=== PATIENT | female | born 1990 | race Caucasian/White ===

== ENCOUNTER 2019-07-12 12:11 | Outpatient (RCR) | payer BC, SELFPAY ==
[2019-07-12 14:20] LABS: Hematocrit 33.8 % (37.0-47.0); Hemoglobin 11.1 g/dL (12.0-15.0)
[2019-07-12 14:30] LABS: Glucose 1 Hour PP 50gm Dose 101 mg/dL
[2019-07-12 14:49] LABS: Vitamin D 25 Hydroxy 43.5 ng/mL
[2019-07-12 15:12] LABS: HIV 1/2 Ab P24 Ag Result Negative (Negative)
[2019-07-12] MEDS: RHO(D) IMMUNE GLOBULIN 300 MCG SYRINGE IM (17:43)
== END 2019-10-10 23:59 | disposition home or self-care (01) ==
LOC: ANHLAB 12:11
PROVIDERS: PCP Registered Nurse; Visit Provider Nurse Practitioner
DX: Z36.89 Encounter for other specified antenatal screening (principal); Z29.13 Encounter for prophylactic Rho(D) immune globulin; O36.0920 Maternal care for other rhesus isoimmunization, second trimester, not applicable or unspecified; Z3A.00 Weeks of gestation of pregnancy not specified
CPT/HCPCS: 36415; 82306; 82947; 85014; 85018; 86703; 86900; 86901; 90384; 96372; G0432; J2790

== ENCOUNTER 2019-09-30 00:33 | Inpatient (IN) | payer BC, SELFPAY ==
[2019-09-30] VITALS (79 sets, daily range): BP systolic 104–212; BP diastolic 59–163; PULSE 69–129; RESP 16–18; TEMP 36.2–37.4; O2SAT 99–100; BMI 27.6
[2019-09-30 02:03] LABS: Basophils Absolute Auto 0.1 K/mm3 (0.0-0.1); Basophils Percent Auto 0.4 % (0.2-1.2); Eosinophils Absolute Auto 0.1 K/mm3 (0-0.3); Eosinophils Percent Auto 0.7 % (0-4.4); Hematocrit 34.7 % (37.0-47.0); Hemoglobin 11.2 g/dL (12.0-15.0); Immature Granulocyte Absolute 0.06 K/mm3 (0.00-0.031); Immature Granulocyte Percent A 0.5 % (0-0.5); Lymphocytes Absolute Auto 3.68 K/mm3 (0.9-3.2); Lymphocytes Percent Auto 28.7 % (18.3-44.2); Mean Corpuscular HGB Conc 32.3 g/dl (32-36); Mean Corpuscular Hemoglobin 26.9 pg (26-34); Mean Corpuscular Volume 83.2 fl (80-100); Mean Platelet Volume 10.2 fl (7.4-10.4); Monocytes Absolute Auto 0.9 K/mm3 (0.1-0.6); Monocytes Percent Auto 6.7 % (2.6-8.5); Neutrophils Absolute Auto 8.1 K/mm3 (1.3-6.7); Platelet Count Result 403 k/mm3 (150-375); Red Blood Count 4.17 M/mm3 (4.2-5.4); Red Cell Distribution Width 14.4 % (11.5-14.5); White Blood Count 12.8 K/mm3 (4.5-10.0)
[2019-09-30 02:19] LABS: Alanine Aminotransferase 11 U/L (4-35); Albumin Level 3.6 g/dL (3.5-5.1); Alkaline Phosphatase 136 U/L (38-126); Aspartate Amino Transferase 24 U/L (14-36); Bilirubin,Total 0.2 mg/dL (0.2-1.3); Blood Urea Nitrogen 13 mg/dL (7-17); Calcium 8.8 mg/dL (8.4-10.2); Carbon Dioxide 23 mmol/L (22-30); Chloride 107 mmol/L (98-107); Estimated CRCL calculation 114 ml/min; Estimated Glomerular Filt Rate > 60; Glucose 85 mg/dL (65-105); Potassium 4.1 mmol/L (3.4-5.0); Sodium 135 mmol/L (137-145); Uric Acid 4.1 mg/dL (2.5-7.5)
[2019-09-30] MEDS: LACTATED RINGERS 1,000 ML 125 ML IV CONT (03:05)
--- NOTE | 2019-09-30 03:19 | WPDANESEPP ---
Anes - Eval Pre Procedure Procedure: labor epidural Date/Time: 09/30/19 03:19 Surgeon: zofia Pre Op Diagnosis: Ctx Patient Data Age: 28 Gender: F Height: 1.7 m Weight: 80 kg Last Vital Signs Temp 36.6 C 09/30/19 01:47 Pulse 77 09/30/19 03:16 BP 127/89 09/30/19 03:16 Allergies Allergy/AdvReac Type Severity Reaction Status Date / Time amoxicillin [From Augmentin] Allergy Unknown Verified 09/04/19 14:44 clavulanic acid Allergy Unknown Verified 09/04/19 14:44 [From Augmentin] clindamycin Allergy Unknown Verified 09/04/19 14:44 levofloxacin [From Levaquin] Allergy Unknown Verified 09/04/19 14:44 sulfamethoxazole Allergy Unknown Verified 09/04/19 14:44 [From Bactrim] trimethoprim [From Bactrim] Allergy Unknown Verified 09/04/19 14:44 Home Medications Medication Instructions Recorded Confirmed Type aspirin [Aspirin Childrens] 81 mg PO DAILY 05/04/19 09/30/19 History ergocalciferol (vitamin D2) 50,000 unit PO WEEKLY 05/04/19 09/30/19 History [id number] 1 tablet PO DAILY 09/04/19 09/30/19 History [ Gummy] Laboratory Tests 09/30/19 09/30/19 09/30/19 01:53 01:53 01:53 WBC 12.8 K/mm3 H K/mm3 (4.5-10.0) RBC 4.17 M/mm3 L M/mm3 (4.2-5.4) Hgb 11.2 g/dL L g/dL (12.0-15.0) Hct 34.7 % L % (37.0-47.0) MCV 83.2 fl fl (80-100) MCH 26.9 pg pg (26-34) MCHC 32.3 g/dl g/dl (32-36) RDW 14.4 % % (11.5-14.5) Plt Count 403 k/mm3 H k/mm3 (150-375) MPV 10.2 fl fl (7.4-10.4) Immature Gran % (Auto) 0.5 % % (0-0.5) Neut % (Auto) 63.0 % % (45.5-73.1) Lymph % (Auto) 28.7 % % (18.3-44.2) [place] % (Auto) 6.7 % % (2.6-8.5) Eos % (Auto) 0.7 % % (0-4.4) Baso % (Auto) 0.4 % % (0.2-1.2) Lymph # (Auto) 3.68 K/mm3 H K/mm3 (0.9-3.2) [place] # (Auto) 0.9 K/mm3 H K/mm3 (0.1-0.6) Eos # (Auto) 0.1 K/mm3 K/mm3 (0-0.3) Baso # (Auto) 0.1 K/mm3 K/mm3 (0.0-0.1) Abs Immat Gran (auto) 0.06 K/mm3 H K/mm3 (0.00-0.031) Absolute Neuts (auto) 8.1 K/mm3 H K/mm3 (1.3-6.7) Absolute Nucleated RBC 0.0 K/mm3 K/mm3 (0.0-0.012) Nucleated RBC % 0.0 % % (0.0-0.2) Sodium Potassium Chloride Carbon Dioxide BUN Creatinine Estim Creat Clear Calc Estimated GFR Glucose Uric Acid Cancelled Calcium Total Bilirubin AST ALT Alkaline Phosphatase Total Protein Albumin RPR Pending 09/30/19 01:53 WBC RBC Hgb Hct MCV MCH MCHC RDW Plt Count MPV Immature Gran % (Auto) Neut % (Auto) Lymph % (Auto) [place] % (Auto) Eos % (Auto) Baso % (Auto) Lymph # (Auto) [place] # (Auto) Eos # (Auto) Baso # (Auto) Abs Immat Gran (auto) Absolute Neuts (auto) Absolute Nucleated RBC Nucleated RBC % Sodium 135 mmol/L L mmol/L (137-145) Potassium 4.1 mmol/L mmol/L (3.4-5.0) Chloride 107 mmol/L mmol/L (98-107) Carbon Dioxide 23 mmol/L mmol/L (22-30) BUN 13 mg/dL mg/dL (7-17) Creatinine 0.60 mg/dL L mg/dL (0.7-1.0) Estim Creat Clear Calc 114 ml/min ml/min Estimated GFR > 60 (59 - ) Glucose 85 mg/dL mg/dL (65-105) Uric Acid 4.1 mg/dL mg/dL (2.5-7.5) Calcium 8.8 mg/dL mg/dL (8.4-10.2) Total Bilirubin 0.2 mg/dL mg/dL (0.2-1.3) AST 24 U/L U/L (14-36) ALT 11 U/L U/L (4-35) Alkaline Phosphatase 136 U/L H U/L (38-126) Total Protein 7.0 g/dL g/dL (6.3-8.2) Albumin 3.6 g/dL g/dL (3.5-5.1) RPR Patient h
[2019-09-30] MEDS: OXYTOCIN 30 UNITS/NS 500 ML 30 UNITS/500 ML BAG 125 UNITS IV CONT (09:10)
--- NOTE | 2019-09-30 09:22 | WPDOBADMIT ---
Obstetrics - Admit Note Admission Note: Complete and pushing record reviewed. No pertinent additions to the history and/or any subsequent changes in the physical findings that are not consistent with the expected course of the were found. Additions to the history and/or subsequent changes in the physical findings follow. None.
--- NOTE | 2019-09-30 09:23 | PM.OBPRVD ---
OB - Delivery Note Procedure Delivery date: 09/30/19 Procedure: Intrapartal events: None Induction method: none Delivery monitor: external FHT and external uterine Route of delivery: Laceration description: Perineal - 2nd Degree Delivery repair: vicryl Specimen: No Estimated blood loss (mL): 200 Anesthesia type: Epidural Disposition: floor Baby Date of : 09/30/19 Time of : 09:04 Weeks of gestation at delivery: 39 Infant gender: Male Weight (pounds): 8 Weight (ounces): 1 presentation: vertex position: Left Occiput Anterior Placenta delivery description: Spontaneous cord vessel description: 3 Vessels, Nuchal Cord, Loose and Clamped/Cut score one minute: 9 score five minutes: 9
--- NOTE | 2019-09-30 09:25 | PM.DS ---
DS: Diagnosis Admitting Diagnosis Admitting Diagnosis: <Robi Esqueda MD - Last Filed: 09/30/19 09:26> DS: Summary Time Spent with Patient Time attestation: Total time spent providing and/or coordinating discharge services: <Robi Esqueda MD - Last Filed: 09/30/19 09:26> DS: Data Data Completed and Pending Labs on day of discharge: Labs from last 24 hours 09/30/19 09/30/19 09/30/19 01:53 01:53 01:53 WBC RBC Hgb Hct MCV MCH MCHC RDW Plt Count MPV Immature Gran % (Auto) Neut % (Auto) Lymph % (Auto) [place] % (Auto) Eos % (Auto) Baso % (Auto) Lymph # (Auto) [place] # (Auto) Eos # (Auto) Baso # (Auto) Abs Immat Gran (auto) Absolute Neuts (auto) Absolute Nucleated RBC Nucleated RBC % Sodium 135 L Potassium 4.1 Chloride 107 Carbon Dioxide 23 BUN 13 Creatinine 0.60 L Estim Creat Clear Calc 114 Estimated GFR > 60 Glucose 85 Uric Acid 4.1 Calcium 8.8 Total Bilirubin 0.2 AST 24 ALT 11 Alkaline Phosphatase 136 H Total Protein 7.0 Albumin 3.6 RPR Pending Blood Type O Negative Antibody Screen Positive Antibody Identification Inconclusive Antigen Identification Cancelled THIAGO, IgG Interpret Not Performed THIAGO, Poly Interpret Negative THIAGO, Complement Interp Not Performed 09/30/19 09/30/19 01:53 01:53 WBC 12.8 H RBC 4.17 L Hgb 11.2 L Hct 34.7 L MCV 83.2 MCH 26.9 MCHC 32.3 RDW 14.4 Plt Count 403 H MPV 10.2 Immature Gran % (Auto) 0.5 Neut % (Auto) 63.0 Lymph % (Auto) 28.7 [place] % (Auto) 6.7 Eos % (Auto) 0.7 Baso % (Auto) 0.4 Lymph # (Auto) 3.[address] [place] # (Auto) 0.9 H Eos # (Auto) 0.1 Baso # (Auto) 0.1 Abs Immat Gran (auto) 0.06 H Absolute Neuts (auto) 8.1 H Absolute Nucleated RBC 0.0 Nucleated RBC % 0.0 Sodium Potassium Chloride Carbon Dioxide BUN Creatinine Estim Creat Clear Calc Estimated GFR Glucose Uric Acid Cancelled Calcium Total Bilirubin AST ALT Alkaline Phosphatase Total Protein Albumin RPR Blood Type Antibody Screen Antibody Identification Antigen Identification THIAGO, IgG Interpret THIAGO, Poly Interpret THIAGO, Complement Interp <Robi Esqueda MD - Last Filed: 09/30/19 09:26> Discharge Plan Discharge Attending physician on discharge: Brynn Galaviz <Robi Esqueda MD - Last Filed: 09/30/19 09:26> Brynn Galaviz <Brynn Galaviz MD - Last Filed: 10/02/19 09:00> Discharging Clinician: Robi Esqueda <Robi Esqueda MD - Last Filed: 09/30/19 09:26> Robi Esqueda <Brynn Galaviz MD - Last Filed: 10/02/19 09:00> Patient Disposition: Home, Self-Care <Robi Esqueda MD - Last Filed: 09/30/19 09:26> Activity: may shower and pelvic rest <Robi Esqueda MD - Last Filed: 09/30/19 09:26> may shower and pelvic rest <Brynn Galaviz MD - Last Filed: 10/02/19 09:00> Diet: regular <Robi Esqueda MD - Last Filed: 09/30/19 09:26> regular <Brynn Galaviz MD - Last Filed: 10/02/19 09:00> Patient Instructions: Antibiotic Form <Robi Esqueda MD - Last Filed: 09/30/19 09:26> Stand Alone Forms: General Discharge Information <Robi Esqueda MD - Last Filed: 09/30/19 09:26> Follow-up/Referrals: Brynn Galaviz MD [Physician] - 6 Weeks <Robi Esqueda MD - Last Filed: 09/30/19 09:26> Discharge Medications: Continued ergocalciferol (vitamin D2) 1,250 mcg (50,000 unit) capsule 50,000 unit PO WEEKLY RF: 0 Gummy 400 mcg-35 mg -25 mg-5 mg Tablet,Chewable 1 tablet PO DAILY RF: 0 Discontinued aspirin [Aspirin Childrens] 81 mg Tablet,Chewable 81 mg PO DAILY RF: 0 <Robi Esqueda MD - Last Filed: 09/30/19 09:26> Date of
[2019-09-30] MEDS: IBUPROFEN 600 MG TABLET PO ×2 (13:20→23:33)
--- NOTE | 2019-09-30 13:25 | PC.NURSE ---
1217-Patient transferred to post room #286 via wheelchair. Support person present. Oriented to unit, room, information board, rooming in, admission packet and security measures. Patient verbalizes understanding.
--- NOTE | 2019-09-30 20:30 | PC.NURSE ---
Patient viewed the discharge video Mother & Baby Care, The First Two Weeks . Patient was given the opportunity and encouraged to ask questions. Patient verbalized understanding of information shared and has been given the mother/baby guide for home reference.
[2019-10-01 03:48] LABS: Hematocrit 29.9 % (37.0-47.0); Hemoglobin 9.7 g/dL (12.0-15.0)
[2019-10-01 07:15] VITALS: BP 119/88; PULSE 89; RESP 18; TEMP 35.3; O2SAT 99
[2019-10-01] MEDS: IBUPROFEN 600 MG TABLET PO ×3 (07:55→20:14)
[2019-10-01] MEDS: DOCUSATE SODIUM 100 MG CAPSULE PO (07:56)
--- NOTE | 2019-10-01 10:33 | PM.OBPNVD ---
OB - PN: Subj Subjective Date/time seen: 10/01/19 10:33 patient doing well bottom sore from hemorrhoids. OB - PN: Obj Data Labs CBC & Chem 7: 10/01/19 03:35 09/30/19 01:53 Labs: Laboratory Results - last 24 hr 10/01/19 03:35 Hgb 9.7 L Hct 29.9 L OB - PN A/P Assessment and Plan (1) (normal spontaneous vaginal delivery): Code(s): O80 - Encounter for full-term uncomplicated delivery Status: Acute Assessment and Plan: doing well no complaints. Time Spent With Patient Time: Total time spent is greater than 50% in coordination of care (as documented) at patient's floor/unit and/or counseling patient: Exam Narrative: Exam Narrative: ff below umbilicus
--- NOTE | 2019-10-01 15:28 | WPDANLDPN2 ---
Anes-Prog Note L&D Date/Time: 10/01/19 15:28 Comfortable throughout: labor and delivery Neuraxial method: epidural Epidural/Spinal procedure site: clean & non-tender Neuro status: Neuro function grossly intact. Cardiovascular status: normal Respiratory status: normal Airway patency: baseline Mental status: baseline Post-Op hydration status: normal Vital Signs: Last Vital Signs Temp 35.3 C L 10/01/19 07:15 Pulse 89 10/01/19 07:15 Resp 18 10/01/19 07:15 BP 119/88 10/01/19 07:15 Pulse Ox 99 10/01/19 07:15 Post-procedural complaints: none Patient feedback: Patient satisfied with anesthetic care.
[2019-10-01 20:14] VITALS: BP 134/84; PULSE 99; RESP 18; TEMP 36.5; O2SAT 100
[2019-10-02] MEDS: IBUPROFEN 600 MG TABLET PO ×2 (02:57→09:32)
[2019-10-02 08:30] VITALS: BP 127/90; PULSE 107; RESP 18; TEMP 36.8; O2SAT 99
--- NOTE | 2019-10-02 08:57 | PM.OBPNVD ---
OB - PN: Subj Subjective Date/time seen: 10/02/19 08:57 Patient comments: no complaints baby status: doing well OB - PN: Obj Data Labs CBC & Chem 7: 10/01/19 03:35 09/30/19 01:53 OB - PN A/P Plan day: 2 Plan: discharge home and other (plan mirerna for bc) Time Spent With Patient Time: Total time spent is greater than 50% in coordination of care (as documented) at patient's floor/unit and/or counseling patient: Exam : Bimanual exam- vagina & uterus: other (Uterus firm, nt @U)
[2019-10-02] MEDS: DOCUSATE SODIUM 100 MG CAPSULE PO (09:32)
[2019-10-02] MEDS: WITCH HAZEL 40 PADS 1 PAD TOPICAL (09:33)
--- NOTE | 2019-10-02 10:30 | PC.NURSE ---
Consulted with patient, mother reports she is pumping and bottle feeding due to nipple pain. Mother states will latch eagerly and is unable to latch without discomfort. Mother states she has pain to nipples with pumping. Discussed nipple care and flange sizing. Advised mother should not have any pain with pumping. Reviewed instructions on breast pump care and usage, pumping schedule, nipple care, and collection and storage of breast milk. Encouraged [id number], breast massage and manual expression to stimulate supply. Assessed patient for correct flange size 21mm, placement and draw. Patient verbalizes and demonstrates understanding of instructions. Mother states at this time she does not wish to breastfeed, she will only pump and bottle feed. However she would like to try latching one time with assist from . Reviewed feeding cues, frequencies, duration of feedings, feeding elimination flow sheet, and signs of adequate intake. Demonstrated stimulation techniques to wake infant for feeding. Assisted with infant to breast. Reviewed positioning/alignment in cross cradle, holding breast in U hold and guided asymmetrical latch on. at breast with one suck and mother quickly reported pain. Reviewed how to break latch. Mother states she will continue with pump and bottle feeding. Mother is feeding as required and waking to feed if needed. Infant is currently meeting outcomes for weight, output, jaundice and feeding frequencies. Mother states she feels confident to continue current feeding plan at home. Reviewed transition to breast milk, signs of adequate intake, and engorgement/relief. Instructed to call ICP if intake/output less than required. Reviewed regular medications mother is taking. Information provided per [facility]. Reviewed community resources on the [facility] website and in the Mom/Baby guide. Information on outpatient services provided. Mother has no further questions at this time.
[2019-10-02 10:53] LABS: Rapid Plasma Reagin Non-Reactive (NonReactive)
[2019-10-04 10:05] VITALS: BP 130/88; PULSE 96; RESP 16; TEMP 36.9; O2SAT 100
== END 2019-10-02 12:52 | disposition home or self-care (01) | DRG 807 ==
LOC: ANHLDR 09:26 → ANHOB2 12:26
PROVIDERS: Admitting Provider Obstetrics & Gynecology; PCP Registered Nurse; Visit Provider Obstetrics & Gynecology Gynecology
DX: O69.81X0 Labor and delivery complicated by cord around neck, without compression, not applicable or unspecified (principal); Z37.0 Single live birth; Z3A.39 39 weeks gestation of pregnancy; O70.1 Second degree perineal laceration during delivery
CPT/HCPCS: 36415; 80053; 84550; 85014; 85018; 85025; 86592; 86850; 86880; 86900; 86901; 86902; A9270; J2590; J2795; J7120

== ENCOUNTER → 2022-03-02 12:52 | Outpatient (CLI) | payer OTHER, SELFPAY ==
--- NOTE | ~2022-03-02 | US_ITS ---
EXAMINATION: US transvaginal DATE: 03/02/2022 14:26 INDICATION: Other specified abnormal uterine and vaginal bleeding TECHNIQUE: Multiple endovaginal sonographic images of the pelvis were obtained. COMPARISON: None. FINDINGS: The uterus measures 6.4 x 3.7 x 5.6 cm. The endometrial complex measures 6 mm in thickness. The righ t ovary measures 3.3 x 2.0 x 2.2 cm. The left ovary measures 5.9 x 5.4 x 5.4 cm. Comprised primarily of a 5.3 cm complex cystic lesion with hypoechoic reticulation and bandlike appearance typical of hem orrhagic cysts. There is normal vascular flow in the ovaries. There is no free fluid in the pelvis. IMPRESSION: 1. 5.3 cm complex left ovarian likely hemorrhagic cyst. Recommend 6-12 week follow-up ultrasound to d ocument resolution. Otherwise normal pelvic ultrasound. Reviewed, dictated and finalized at location B. IMPRESSION: 1. 5.3 cm complex left ovarian likely hemorrhagic cyst. Recommend 6-12 week fol low-up ultrasound to document resolution. Otherwise normal pelvic ultrasound.
== END ==
PROVIDERS: PCP Registered Nurse; Visit Provider Advanced Practice Midwife
DX: N93.8 Other specified abnormal uterine and vaginal bleeding (principal)
CPT/HCPCS: 76830

== ENCOUNTER → 2023-03-10 11:12 | Outpatient (CLI) | payer OTHER, SELFPAY ==
--- NOTE | ~2023-03-10 | US_ITS ---
Pelvic ultrasound. Clinical History: Ovarian cyst Technique: Realtime transabdominal and transvaginal scanning of the pelvis was performed. Color flow Doppler and Doppler spectral analysis were performed. Findings: The uterus is anteverted. The endometrial stripe has a thickness of 5 mm. No focal mass is identified. The right ovary measures 2.4 x 1.9 x 3.1 cm. No significant right ovarian or adnexal mass is seen. The left ovary measures 6.3 x 4.5 x 5.6 cm. Left ovarian cyst measures 3.7 cm in maximum diameter. Vascular flow present in both ovaries on Doppler spectral analysis. There is no evidence of free fluid in the cul de sac. Impression: 3.7 cm probable simple left ovarian cyst. Reviewed, dictated and finalized at [facility]. Impression: 3.7 cm probable simple left ovarian cyst.
== END ==
PROVIDERS: PCP Advanced Practice Midwife; Visit Provider Advanced Practice Midwife
DX: N83.202 Unspecified ovarian cyst, left side (principal)
CPT/HCPCS: 76856

== ENCOUNTER 2024-03-06 11:10 | Outpatient (CLI) | payer OTHER, SELFPAY ==
--- NOTE | ~2024-03-06 | US_ITS ---
Pelvic ultrasound. Clinical History: Left ovarian cyst Technique: Realtime transvaginal scanning of the pelvis was performed. Color flow Doppler and Doppler spectral analysis were performed. Findings: The uterus is retroverted. The endometrial stripe has a thickness of 8 mm. No focal mass i s identified. The right ovary measures 3.3 x 1.8 x 2.8 cm. No significant right ovarian or adnexal mass is seen. The left ovary measures 4.0 x 2.2 x 2.8 cm. No significant left ovarian or adnexal mass is seen. There is no evidence of free fluid in the cul de sac. Impression: Unremarkable pelvic ultrasound. Reviewed, dictated and finalized at location . Impression: Unremarkable pelvic ultrasound.
== END 2024-03-06 11:11 | disposition home or self-care (01) ==
LOC: MICIMG 11:11
PROVIDERS: PCP Advanced Practice Midwife; Visit Provider Advanced Practice Midwife
DX: N83.202 Unspecified ovarian cyst, left side (principal)
CPT/HCPCS: 76830